=== PATIENT | female | born 1970 | race Two or more races ===

== ENCOUNTER 2018-06-15 12:30 | Emergency (ER) | payer OTHER ==
[2018-06-15 12:51] VITALS: BP 146/59; PULSE 59; TEMP 98; BMI 24.1
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
[2018-06-15] MEDS ORDERED: ACETAMINOPHEN 325 MG TABLET (FP) PO ONE (14:05)
[2018-06-15] MEDS ORDERED: ACETAMINOPHEN 325 MG TABLET (FP) ONE (14:14)
[2018-06-15 14:23] LABS: URINE APPEARANCE CLEAR; URINE BILIRUBIN NEGATIVE (<2.0 mg/dL); URINE COLOR COLORLESS; URINE GLUCOSE (UA) NEGATIVE (NEGATIVE); URINE KETONE NEGATIVE (NEGATIVE); URINE LEUK ESTERASE NEGATIVE (NEGATIVE); URINE NITRITE NEGATIVE (NEGATIVE); URINE PROTEIN NEGATIVE (NEGATIVE); URINE UROBILINOGEN NEGATIVE mg/dL (0.2-1.0)
[2018-06-15 14:25] LABS: EPI CELLS RARE /HPF (FEW)
[2018-06-15 14:51] LABS: HCG,QUALITATIVE URINE Negative
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
[2018-06-15] MEDS ORDERED: NAPROXEN 375 MG TABLET (FP) PO ONE (15:55)
[2018-06-15] MEDS ORDERED: NAPROXEN 500 MG TABLET (FP) PO ONE (16:03)
[2018-06-15] MEDS ORDERED: NAPROXEN 500 MG TABLET (FP) ONE (16:03)
[2018-06-15] MEDS ORDERED: ACETAMINOPHEN INJECTION 100 ML IVPB ONE (16:49)
== END 2018-06-15 17:20 | disposition home or self-care (01) ==
LOC: JER 12:30
DX: G50.1 Atypical facial pain (principal); V43.52XA Car driver injured in collision with other type car in traffic accident, initial encounter; Y93.89 Activity, other specified; Y92.410 Unspecified street and highway as the place of occurrence of the external cause
CPT/HCPCS: 70450-TC; 70486-TC; 72125-TC; 81003; 81015; 84703; 99281-25